=== PATIENT | male | born 1955 | race Caucasian/White ===

== ENCOUNTER 2017-12-20 15:47 | Emergency (ER) | payer OTHER ==
[~2017-12-20] VITALS: Ht 170.2 cm; Wt 73.1 kg
[2017-12-20 16:03] LABS: ABSOLUTE BASOPHILS 0.1 thou/uL (0.0-0.2); ABSOLUTE EOSINOPHILS 0.2 thou/uL (0.0-0.7); ABSOLUTE LYMPHOCYTES 3.3 thou/uL (0.8-5.3); ABSOLUTE MONOCYTES 1.1 thou/uL (0.0-1.2); ABSOLUTE NEUTROPHILS 9.9 thou/uL (1.6-8.1); EOSINOPHILS 1.5 %; HEMATOCRIT 48.7 % (42.0-52.0); HEMOGLOBIN 16.7 gm/dL (14.0-18.0); LYMPHOCYTES 22.5 %; MCH 32.4 pg (26.0-34.0); MCHC 34.4 g/dL (28.0-37.0); MCV 94.2 fL (80.0-100.0); MONOCYTES 7.8 %; MPV 7.6 fl. (7.2-11.1); NUCLEATED RBCS 0 /100WBC; PLATELET COUNT* 386 thou/uL (150-400); POLYS 67.2 %; RBC 5.17 mil/uL (4.50-6.00); RDW-CV 14.1 % (10.5-14.5); WBC 14.7 thou/uL (4.0-11.0)
[2017-12-20 16:09] LABS: URINE BILIRUBIN NEGATIVE (Negative); URINE BLOOD NEGATIVE (Negative); URINE CLARITY CLEAR; URINE COLOR YELLOW; URINE GLUCOSE-RANDOM NEGATIVE (Negative); URINE KETONES NEGATIVE (Negative); URINE LEUKOCYTES-REFLEX NEGATIVE (Negative); URINE NITRITE-REFLEX NEGATIVE (Negative); URINE PROTEIN NEGATIVE (Negative); URINE SPECIFIC GRAVITY <= 1.005 (1.005-1.030); URINE UROBILINOGEN 0.2 E.U./dl (0.2-1.0)
[2017-12-20 16:12] LABS: CREATININE 0.7 mg/dL (0.6-1.3); POTASSIUM 4.1 mmol/L (3.5-5.1)
[2017-12-20 16:26] LABS: ALBUMIN 3.6 g/dL (3.4-5.0); TOTAL BILIRUBIN 0.1 mg/dL (<0.1-1.0); TOTAL PROTEIN 7.1 g/dL (6.4-8.2)
[2017-12-20 16:27] LABS: AMP/METHAMP Negative (Negative); BARBITURATES Negative (Negative); BENZODIAZEPINES Negative (Negative); COCAINE Negative (Negative); METHADONE Negative (Negative); OPIATES Negative (Negative); PCP Negative (Negative); THC Negative (Negative)
[2017-12-20 16:29] LABS: ALCOHOL 258 mg/dL (<10); SALICYLATE 5.7 mg/dL (2.8-20.0)
[2017-12-20 16:30] LABS: ACETAMINOPHEN < 2 ug/mL (10-30)
[2017-12-21 03:35] VITALS: BP 152/90
== END 2017-12-21 03:35 | disposition still patient (30) ==
LOC: M.ERS 15:47
PROVIDERS: Family Medicine
DX: R45.851 Suicidal ideations (principal); F10.129 Alcohol abuse with intoxication, unspecified; Y90.8 Blood alcohol level of 240 mg/100 ml or more; F32.9 Major depressive disorder, single episode, unspecified; F17.210 Nicotine dependence, cigarettes, uncomplicated

== ENCOUNTER 2018-03-03 07:11 | Emergency (ER) | payer OTHER ==
[~2018-03-03] VITALS: Ht 167.6 cm; Wt 78.0 kg
[2018-03-03] MEDS ORDERED: NICOTINE TRANSD21 M1 (07:19)
[2018-03-03] MEDS ORDERED: REMERON15 MG PO (07:19)
[2018-03-03] MEDS ORDERED: ALBUTEROL2.5 MG/31 INH (07:19)
[2018-03-03] MEDS ORDERED: LISINOPRIL10 MG PO (07:20)
[2018-03-03] MEDS ORDERED: ADVAIR HFA 230M12 GM INH (07:20)
[2018-03-03] MEDS ORDERED: TRAZODONE HCL50 MG PO (07:20)
[2018-03-03] MEDS ORDERED: VISTARIL 25 MG25 M1 PO (07:20)
[2018-03-03 07:53] LABS: HEMOGLOBIN 14.4 gm/dL (14.0-18.0); NUCLEATED RBCS 0 /100WBC
[2018-03-03 07:55] LABS: HEMATOCRIT 41.6 % (42.0-52.0); MCH 31.4 pg (26.0-34.0); MCHC 34.7 g/dL (28.0-37.0); MCV 90.5 fL (80.0-100.0); PLATELET COUNT* 297 thou/uL (150-400); RDW-CV 13.3 % (10.5-14.5); WBC 12.8 thou/uL (4.0-11.0)
[2018-03-03 07:58] LABS: ANION GAP 8 mmol/L (7-16); BUN 7 mg/dL (7-18); CHLORIDE 95 mmol/L (98-107); CO2 27 mmol/L (21-32); CREATININE 0.7 mg/dL (0.6-1.3); GLUCOSE 120 mg/dL (70-99); POTASSIUM 4.1 mmol/L (3.5-5.1); SODIUM 130 mmol/L (136-145)
[2018-03-03 08:02] LABS: APTT 29.6 Seconds (25.0-31.3); PROTIME 10.3 Seconds (9.20-11.50)
[2018-03-03 08:14] LABS: ALBUMIN 3.1 g/dL (3.4-5.0); ALKALINE PHOSPHATASE 58 U/L (46-116); CK-MB MASS 0.6 ng/mL (<0.5-3.6); LIPASE 306 U/L (73-393); MAGNESIUM 1.7 mg/dL (1.8-2.4); NT-PRO BRAIN NAT PEPTIDE 295 pg/mL (<300); SGOT 22 U/L (15-37); SGPT 28 U/L (30-65); TOTAL BILIRUBIN 0.8 mg/dL (<0.1-1.0); TOTAL PROTEIN 6.2 g/dL (6.4-8.2); TROPONIN-I LEVEL <0.06 ng/mL (<0.06)
[2018-03-03 08:54] LABS: ABSOLUTE LYMPHOCYTES 1.4 thou/uL (0.8-5.3); ABSOLUTE MONOCYTES 1.3 thou/uL (0.0-1.2); ABSOLUTE NEUTROPHILS 10.1 thou/uL (1.6-8.1); PLATELET ESTIMATE ADEQUATE
--- NOTE | 2018-03-03 13:49 | EXE ---
[place] [address] STRESS ECHOCARDIOGRAM Name: AYO MCDONNELL Room: [facility]#: [id number] Admission: 03/03/18 Attend Phys: Discharge: Date of : 53 Date of Service: 03/03/18 1349 Report #: [id number] THIS REPORT FOR: //name// APPROVED REPORT Study performed: 03/03/2018 11:02:45 Exam: Stress Echocardiogram Indication: Chest pain Patient Location: ER Stress Nurse: Kaila Springer RN Supervising Physician: Inder Teague MD Status: routine Ht: 5 ft 6 in HR: 72 bpm BP: 144/88 mmHg Rhythm: NSR Medical History Medical History: COPD Cardiac Risk Factors: HTN, FHX of CAD, Tobacco History (Current/Recent) Procedure The patient underwent an Exercise Stress Test using the Rupert Protocol. Blood pressure, heart rate, and EKG were monitored. An Echocardiogram was performed by ecologist technician in four stages in quad fashion. At peak stress, four selected images were obtained and placed side by side with resting images for comparison. Stress Test Details HR Resting HR: 72 bpm Max Heart Rate (APMHR): 157 bpm Max HR Achieved: 141 bpm Target HR (85% APMHR): 133 bpm % of APMHR: 89 Recovery HR: 76 bpm HR response to stress: Normal HR response to stress BP Resting BP: 144/88 mmHg Max BP: 162/88 mmHg Recovery BP: 160/84 mmHg BP response to stress: Normal blood pressure response [place] [address] STRESS ECHOCARDIOGRAM Name: AYO MCDONNELL Room: [facility]#: [id number] Admission: 03/03/18 Attend Phys: Discharge: Date of : 53 Date of Service: 03/03/18 1349 Report #: [id number] Resting ECG: Normal tracing Stress ECG: No ischemic st-t changes Clinical Reason for Termination: Dyspnea Exercise duration: 5 min 5 sec Highest Stage Achieved: Stage 2: 2.5 mph at 12% grade. Exercise capacity: 7.05 METs Pre-Stress Echo The resting Echocardiogram showed normal left ventricular contractility with an estimated Ejection Fraction of about 55-60%. Normal wall motion in all segments on baseline images. Post-Stress Echo The stress Echocardiogram showed normal left ventricular contractility with an estimated Ejection Fraction of about >70%. Normal augmentation of wall motion in all segments on post stress images. Conclusion Clinical Response: Non-ischemic Exercise Capacity: Below Average Stress ECG Response: Non-ischemic Stress Echo Images: Non-ischemic Other Information Study Quality: Good <ELECTRONICALLY SIGNED> By: Inder Teague MD, [facility] 12/1348 48 48 Inder Teague MD, FACC /INF
[2018-03-03 13:58] VITALS: BP 150/87
--- NOTE | 2018-03-03 15:00 | EKG ---
[place] [address] ELECTROCARDIOGRAM REPORT Name: [facility]IZAYO [id number]: 03/03/18 Attend Phys: Discharge: 03/03/18 Date of : 53 Report #: [id number] THIS REPORT FOR: //name// [facility] ED Test Date: 2018-03-03 Test Time: 07:15:23 Pat Name: AYO MCDONNELL Department: Room: Gender: M Student Financial Aid Manager: MED STUDENT : 1955 Requested By: Chris Horowitz Order Number: [id number] MD: Inder Teague Measurements Intervals [place] Rate: 70 P: 74 PA: 142 QRS: 51 QRSD: 98 T: 56 QT: 376 QTc: 406 Interpretive Statements Sinus rhythm Borderline low voltage, extremity leads No previous ECG available for comparison Electronically Signed On 03-03-2018 15:00:09 [employer]ILLET WORK[employer] by Inder Teague [email or web address] <ELECTRONICALLY SIGNED> By: Inder Teague MD, [facility] 03/03/18 1500 4 0715 Inder Teague MD, FACC /EPI
== END 2018-03-03 13:59 | disposition home or self-care (01) ==
LOC: M.ERS 07:11
PROVIDERS: Family Medicine
DX: R07.89 Other chest pain (principal); F32.9 Major depressive disorder, single episode, unspecified; F41.9 Anxiety disorder, unspecified; J43.9 Emphysema, unspecified; F17.210 Nicotine dependence, cigarettes, uncomplicated